=== PATIENT | female | born 1935 | race Caucasian/White ===

== ENCOUNTER 2017-02-01 09:10 | Emergency (ER) | payer OTHER, MEDICARE ==
[2017-02-01 09:32] VITALS: RESP 16; TEMP 97.5
--- NOTE | 2017-02-01 09:37 | EDPHY ---
H & P Stated Complaint: left knee inj pain and swelling sp fall Time Seen by Provider: 02/01/17 09:31 HPI/ROS: CHIEF COMPLAINT: Left knee pain HISTORY OF PRESENT ILLNESS: The patient is an 81-year-old female with a history of left knee replacement who tripped and fell onto her left knee this morning. Knee is swollen and painful. She is able to ambulate. She is able to flex and extend her knee. She has no ankle or hip pain. Normal sensation distally. She denies other injuries. She does not take blood thinners. REVIEW OF SYSTEMS: Constitutional: denies: chills, fever, recent illness, recent injury EENTM: denies: blurred vision, double vision, nose congestion Respiratory: denies: cough, shortness of breath Cardiac: denies: chest pain, irregular heart rate, lightheadedness, palpitations Gastrointestinal/Abdominal: denies: abdominal pain, diarrhea, nausea, vomiting, blood streaked stools Genitourinary: denies: dysuria, frequency, hematuria, pain Musculoskeletal: See HPI Skin: denies: lesions, rash, jaundice, bruising Neurological: denies: headache, numbness, paresthesia, tingling, dizziness, weakness Hematologic/Lymphatic: denies: blood clots, easy bleeding, easy bruising Immunologic/allergic: denies: HIV/AIDS, transplant EXAM: GENERAL: Well-appearing, well-nourished and in no acute distress. HEAD: Atraumatic, normocephalic. EYES: Pupils equal round and reactive to light, extraocular movements intact, sclera anicteric, conjunctiva are normal. ENT: TMs normal, nares patent, oropharynx clear without exudates. Moist mucous membranes. NECK: Normal range of motion, supple without lymphadenopathy or JVD. LUNGS: Breath sounds clear to auscultation bilaterally and equal. No wheezes rales or rhonchi. HEART: Regular rate and rhythm without murmurs, rubs or gallops. ABDOMEN: Soft, nontender, normoactive bowel sounds. No guarding, no rebound. No masses appreciated. BACK: No CVA tenderness, no spinal tenderness, step-offs or deformities EXTREMITIES: Left knee with significant swelling. No obvious deformity. Normal range of motion. Able to extend knee without difficulty. Normal pulses distally. No abrasion or laceration. NEUROLOGICAL: Cranial nerves II through XII grossly intact. Normal speech, able to ambulate . 5/5 strength, normal movement in all extremities, normal sensation PSYCH: Normal mood, normal affect. SKIN: Warm, dry, normal turgor, no visible rashes or lesions. Source: Patient Exam Limitations: No limitations - Personal History Tetanus Vaccine Date: < 10 YRS - Medical/Surgical History Hx Asthma: No Hx Chronic Respiratory Disease: No Hx Diabetes: No Hx Cardiac Disease: No Hx Renal Disease: No Hx Cirrhosis: No Other PMH: ortho surg knee b hips shoulders. htn. anxiety - Family History Significant Family History: No pertinent family hx - Social History Smoking Status: Former smoker Alcohol Use: Sober Drug Use: None Constitutional: Initial Vital Signs Temperature (C) 36.4 C 02/01/17 09:29 Heart Rate 72 02/01/17 09:29 Respiratory Rate 16 02/01/17 09:29 Blood Pressure 146/82 H 02/01/17 09:29 O2 Sat (%) 94 02/01/17 09:29 O2 Delivery Mode Room Air Allergies/Adverse Reactions: No Known Allergies Allergy (Unverified 01/19/11 07:25) Home Medications: Medication Instructions Recorded Acetaminophen [Tylenol Tablet] 1,000 mg PO TID PRN 05/06/13 Divalproex ER [Depakote ER 500 MG 250 mg PO Q2D 05/06/13 (RX)] Levothyroxine [Synthroid 75 mcg 75 mcg PO DAILY06 05/06/13 (RX)] Pharmacist Completed 05/06/13 05/06/13 Hydrocodone Bit/Acetaminophen 05/11/13 [Hydrocodon-Acetaminophen 5-300] Medical Decision Making - Diagnostics Imaging Results: Imaging Impressions Knee X-Ray 02/01/17 09:35 Impression: 1. Left total knee arthroplasty. 2. Diffuse soft tissue swelling. 3. No definite acute fracture. Imaging: I viewed and interpreted images myself ED Course/Re-evaluation: We discussed the x-ray results. Patient and son are relieved. She has a large hematoma. We will wrapped with Vijay wrap, have encouraged elevation and ice. She is ambulatory. I encouraged her to stay mobile and do leg exercises in bed. She understands and agrees with this plan. She will follow up with her orthopedist. Differential Diagnosis: Partial list of the Differential diagnosis considered include but were not limited to; hematoma, knee effusion and although unlikely based on the history and physical exam, I also considered fracture, dislocation, infection. I discussed these differential diagnoses and the plan with the patient as well as the usual and expected course. The patient understands that the diagnosis is provisional and that in medicine we are not always correct and that further workup is often warranted. Usual and customary warnings were given. All of the patient's questions were answered. The patient was instructed to return to the emergency department should the symptoms at all worsen or return, otherwise to followup with the physician as we discussed. Departure - Departure Disposition: Home, Routine, Self-Care Clinical Impression: Hematoma Condition: Fair Instructions: Hematoma (ED) Additional Instructions: Continue to ambulate as discussed and do the exercises in bed. Keep the leg elevated and iced as much as possible. Decompression should help with the swelling. Expect significant bruising over the next few weeks. Referrals: Conchita Davis MD [Primary Care Provider] - As per Instructions
[2017-02-01 10:41] VITALS: BP 116/73; PULSE 58; O2SAT 91
== END 2017-02-01 10:41 | disposition home or self-care (01) ==
LOC: CED 09:10
DX: S80.02XA Contusion of left knee, initial encounter (principal); I10 Essential (primary) hypertension; Z87.891 Personal history of nicotine dependence; W01.0XXA Fall on same level from slipping, tripping and stumbling without subsequent striking against object, initial encounter
CPT/HCPCS: 73564-PO

== ENCOUNTER → 2018-01-08 | Outpatient (CLI) | payer OTHER, MEDICARE | LOC: FIMAGING 10:35 | PROVIDERS: ATTEND Family Medicine | DX: R19.8 Other specified symptoms and signs involving the digestive system and abdomen (principal); R15.9 Full incontinence of feces; Z79.891 Long term (current) use of opiate analgesic; K59.00 Constipation, unspecified ==

== ENCOUNTER → 2018-12-15 | Outpatient (CLI) | payer OTHER, MEDICARE | LOC: FIMAGING 13:53 | PROVIDERS: ATTEND Family Medicine | DX: K59.00 Constipation, unspecified (principal) ==